=== PATIENT | male | born 1985 | race Caucasian/White ===

== ENCOUNTER 2018-06-28 23:51 | Emergency (ER) | payer OTHER, SELFPAY ==
[2018-06-29 00:04] VITALS: BMI 29.9
[2018-06-29 00:05] VITALS: BP 146/93; PULSE 68; RESP 18; TEMP 36.8; O2SAT 99
[2018-06-29 00:15] LABS: Bacteria Urine None Seen; WBC Urine None Seen (0-5/HPF)
--- NOTE | 2018-06-29 00:20 | ED_ITS ---
HPI - Back Pain/Injury General Chief Complaint: Back Pain/Injury Stated Complaint: pain right side sent by [facility] kidney stone Time Seen by Provider: 06/29/18 00:20 Source: patient Mode of arrival: ambulatory Limitations: no limitations History of Present Illness HPI Narrative: Otherwise healthy 33-year-old male here for evaluation of right- sided flank pain radiating around to his abdomen. Patient states that it was a fairly sudden onset[place]. He states he has never had a kidney stone in the past. Has not noticed any blood in his urine. Has not had any fevers. [place] what was reported to be Toradol. I do not have record of this. He states that he was also given some nausea medication but did not take it. By the time he arrived here in the emergency department he states that his symptoms have vastly improved. Related Data Previous Rx's Medication Instructions Recorded hydrocodone-acetaminophen [[place]] 1 tab PO Q4-6H PRN #10 tab 06/29/18 Review of Systems Constitutional Denies fever(s) and Denies headache(s) ENT Ears, Nose, Mouth, and Throat: Denies headache(s) Cardiovascular Denies chest pain and Denies dyspnea Respiratory Denies dyspnea Gastrointestinal Gastrointestinal: Reports abdominal pain, Denies change in stool character, Denies diarrhea, Reports nausea and Denies vomiting Genitourinary Reports flank pain, Denies urinary frequency, Denies urinary hesitancy and Denies urinary urgency Musculoskeletal Denies myalgias and Denies arthralgias Integumentary/Breasts Denies rash Neurologic Denies behavioral changes and Denies headache(s) Psychiatric Denies behavioral changes Hematologic/Lymphatic Denies easy bleeding and Denies easy bruising Allergic/Immunologic Denies urticaria [facility] Medical History Healthy adult (Acute) Social History Smoking Status: Never smoker Social History Smoking Status: Never smoker Exam Initial Vital Signs Initial Vital Signs: Vital Signs Temperature 98.2 F 06/29/18 00:05 Pulse Rate 68 06/29/18 00:05 Respiratory Rate 18 06/29/18 00:05 Blood Pressure 146/93 H 06/29/18 00:05 Pulse Oximetry 99 06/29/18 00:05 Const General: cooperative, healthy appearing, comfortable, well developed, well groomed and No acute distress Orientation: alert, awake and oriented x3 HENMT Head: normal to inspection and normocephalic Resp Effort & Inspection: normal respiratory effort Auscultation: clear to auscultation bilaterally Cardio Rate: regular rate Rhythm: regular rhythm GI Inspection: non-distended Palpation: soft and No tender Back/Spine/Pelvis Back: No CVA tenderness Skin Lesions: no lesions Rashes: no rashes Neuro General: alert, awake and oriented x3 Extrem General: normal to inspection and capillary refill normal Psych Appearance: grossly normal and well kempt Course Orders Ordered: ED Orders 06/29/18 00:14 Urine Microscopic Stat 06/29/18 00:30 CT kidney ureter bladder (KUB) Stat 06/29/18 01:13 Complete Blood Count AUTO DIFF Stat Comprehensive Metabolic Panel Stat Lipase Stat Discontinued Medications Hydrocodone Bitart/Acetaminophen (Vicodin Prepack) 1 bottle MISC SEEINSTR ONE Stop: 06/29/18 02:13 Last Admin: 06/29/18 02:10 Dose: 1 bottle Ondansetron HCl (Zofran Odt Prepack) 1 bottle MISC SEEINSTR ONE Stop: 06/29/18 02:13 Last Admin: 06/29/18 02:10 Dose: 1 bottle Vital Signs - 8 hr 06/29/18 00:05 06/29/18 02:15 Temperature 98.2 F Pulse Rate 68 68 Respiratory Rate 18 15 Blood Pressure 133/93 H Blood Pressure [Left Arm] 146/93 H Pulse Oximetry 99 95 MDM - Back Pain/Injury Lab Data Attestation: I reviewed the patient's lab results. Result diagrams: 06/29/18 01:13 06/29/18 01:13 Lab Results 06/29/18 06/29/18 06/29/18 Range/Units 00:14 01:13 01:13 WBC 8.7 (4.5-11.0) X10^3/uL RBC 4.62 (4.5-5.9) X10^6/uL Hgb 15.5 (13.5-17.5) g/dL Hct 43.8 (41-53) % MCV 94.6 (80-100) fL MCH 33.4 (26-34) PG MCHC 35.3 (30-36) % RDW 12.7 (11.6-14.8) % Plt Count 280 (150-400) X10^3/uL Neut % (Auto) 78.3 H (50-75) % Lymph % (Auto) 14.4 L (25-40) % [place] % (Auto) 6.5 (3-14) % Eos % (Auto) 0.3 L (2-4) % Baso % (Auto) 0.5 (0-2) % Neut # (Auto) 6800 (5124-0024) /uL Lymph # (Auto) 1200 (2001-4891) /uL [place] # (Auto) 600 (0-900) /uL Eos # (Auto) 0 (0-450) /uL Baso # (Auto) 0 (0-100) /uL Sodium 138 (137-145) mmol/L Potassium 3.9 (3.4-5.1) mmol/L Chloride 100 (98-107) mmol/L Carbon Dioxide 27 (22-32) mmol/L BUN 14 (9-20) mg/dL Creatinine 1.00 (0.66-1.25) mg/dL Estimated GFR > 60.0 (>60) mL/min BUN/Creatinine Ratio 14.0 (6-22) Glucose 102 H (70-100) mg/dL Calcium 9.3 (8.4-10.2) mg/dL Total Bilirubin 1.3 (0.2-1.3) mg/dL AST 24 (17-59) IU/L ALT 32 (21-72) IU/L Alkaline Phosphatase 83 (38-126) U/L Total Protein 7.8 (6.3-8.2) g/dL Albumin 4.7 (3.5-5.0) g/dL Globulin 3.1 (1.7-4.1) g/dL Albumin/Globulin Ratio 1.5 (1.0-2.8) Lipase 104 (23-300) U/L Urine RBC 30-100/hpf H (0-5/HPF) Urine WBC None seen (0-5/HPF) Urine Bacteria None seen (None) Ur Culture Indicated? Cult not indicated Urine Dip Bedside Urine Glucose Negative Bedside Urine Bilirubin - Negative Bedside Urine Ketone + 15 Urine Specific [place] 1.015 Bedside Urine Occult Blood +++ Bedside Urine pH 6.0 Bedside Urine Protein - Negative Bedside Urine Urobilinogen - Negative Bedside Urine Nitrite - Negative Bedside Urine Leukocytes - Negative Esterase Imaging Data CT scan - abdomen: Radiologist's impression: 2 mm stone right distal ureter. Produces right mild hydronephrosis. MDM Narrative Medical decision making narrative: Patient reports a vast improvement of his symptoms by the time he arrived here in the ER. Did not receive any medications here in the emergency department. He has never had a kidney stone in the past so CT scan was ordered to confirm the diagnosis which did show a 2 mm right- sided stone. No signs of an infection. Creatinine is unremarkable. Sent home with pain medication and nausea medication. Patient was given return precautions and follow-up instructions. He expressed understanding and agreement with plan. Discharge Plan Departure Patient Disposition: Home Clinical Impression: Renal colic Discharge Date/Time: 06/29/18 02:15 Interventions: ED Discharge Assessment Last Done: 06/29/18 02:15 Instructions: DI for Kidney Stones Activity Restrictions/Additional Instructions: Be sure to increase your fluid intake. Return to the emergency department for any new symptoms to include fevers, inability to urinate, worsening pain, or any other concerning symptoms. Prescriptions: New hydrocodone-acetaminophen [[place]] 5-325 mg tablet 1 tab PO Q4-6H PRN (Reason: pain) Qty: 10 RF: 0
--- NOTE | 2018-06-29 00:30 | DI.CT.S_ITS ---
PROCEDURE: CT KIDNEY URETER BLADDER (KUB) INDICATIONS: Right-sided flank pain concern for stone TECHNIQUE: Noncontrast 5 mm thick sections acquired from the diaphragms to the symphysis. 5 mm thick coronal and sagittal reformats were then performed. For radiation dose reduction, the following was used: automated exposure control, adjustment of mA and/or kV according to patient size. COMPARISON: None. FINDINGS: Image quality: Excellent. Lung bases: There are small indistinct nodular opacities in the lung bases measuring approximately 2 mm on the right and 3 mm on the left which are nonspecific. Heart size is normal. Urinary system: There is a small 2 mm urinary stone within the distal right ureter with mild right hydroureteronephrosis. There is minimal perinephric stranding. There are 2 additional nonobstructing stones within each kidney, measuring up to approximately 2 mm. No left hydronephrosis. The urinary bladder is nondistended. No calcified bladder stones. Other solid organs: Noncontrast evaluation of the liver demonstrates no focal hepatic lesions. Gallbladder appears within normal limits without calcified gallstones. Pancreas is normal in contours. Spleen is normal in size. No adrenal nodules. Peritoneum and bowel: Unenhanced bowel loops demonstrate normal wall thickness and caliber. The appendix is normal in appearance. There is colonic diverticulosis without acute diverticulitis. No free fluid or air. Nodes and vessels: No retroperitoneal or mesenteric adenopathy by size criteria. Aorta and inferior vena cava are normal in caliber. Abdominal wall: No ventral hernias. Pelvis: No free pelvic fluid. No inguinal hernias or adenopathy. Bones: No suspicious bony lesions. No vertebral body compression fractures. IMPRESSION: 1. Small 2 mm distal right ureteral stone with associated mild right hydronephrosis. 2. Additional small nonobstructing bilateral renal stones. 3. No evidence of appendicitis. 4. Small nonspecific nodules in the lung bases. If patient is at low risk for malignancy, no further followup is warranted. 5. Colonic diverticulosis without acute diverticulitis. Dictated by: Sudhakar Fisher M.D. on 06/29/2018 at 8:00 Approved by: Sudhakar Fisher M.D. on 06/29/2018 at 8:06
[2018-06-29 00:45] LABS: RBC Urine 30-100/HPF (0-5/HPF)
[2018-06-29 00:46] LABS: Culture Indicated Urine Cult Not Indicated
[2018-06-29 01:21] LABS: Add Manual Diff / Slide Review NO; Basophils Absolute Auto 0 /uL (0-100); Basophils Percent Auto 0.5 % (0-2); Eosinophils Absolute Auto 0 /uL (0-450); Eosinophils Percent Auto 0.3 % (2-4); Hematocrit 43.8 % (41-53); Hemoglobin 15.5 g/dL (13.5-17.5); Lymphocytes Absolute Auto 1200 /uL (1100-4500); Lymphocytes Percent Auto 14.4 % (25-40); Mean Corpuscular HGB Conc 35.3 % (30-36); Mean Corpuscular Hemoglobin 33.4 PG (26-34); Mean Corpuscular Volume 94.6 fL (80-100); Monocytes Absolute Auto 600 /uL (0-900); Monocytes Percent Auto 6.5 % (3-14); Neutrophils Absolute Auto 6800 /uL (1500-7000); Neutrophils Percent Auto 78.3 % (50-75); Platelet Count 280 X10^3/uL (150-400); Red Blood Cell Count 4.62 X10^6/uL (4.5-5.9); Red Cell Distribution Width 12.7 % (11.6-14.8); White Blood Cell Count 8.7 X10^3/uL (4.5-11.0)
[2018-06-29 01:30] LABS: Alanine Aminotransferase 32 IU/L (21-72); Albumin 4.7 g/dL (3.5-5.0); Albumin Globulin Ratio 1.5 (1.0-2.8); Alkaline Phosphatase 83 U/L (38-126); Aspartate Aminotransferase 24 IU/L (17-59); Bilirubin Total 1.3 mg/dL (0.2-1.3); Blood Urea Nitrogen 14 mg/dL (9-20); Calcium 9.3 mg/dL (8.4-10.2); Carbon Dioxide 27 mmol/L (22-32); Chloride 100 mmol/L (98-107); Estimated Glomerular Filt Rate > 60.0 mL/min (>60); Globulin 3.1 g/dL (1.7-4.1); Glucose 102 mg/dL (70-100); HEMOLYSIS 15 (0-50); Lipase 104 U/L (23-300); Potassium 3.9 mmol/L (3.4-5.1); Sodium 138 mmol/L (137-145); Total Protein 7.8 g/dL (6.3-8.2)
[2018-06-29] MEDS: HYDROCODONE/ACET 5/325 PREPACK 1 BOTTLE MISC (02:10)
[2018-06-29] MEDS: ONDANSETRON 4 MG ODT PREPACK 1 BOTTLE MISC (02:10)
[2018-06-29 02:15] VITALS: BP 133/93; PULSE 68; RESP 15; O2SAT 95
== END 2018-06-29 02:15 | disposition home or self-care (01) ==
PROVIDERS: Emergency Provider Emergency Medicine
DX: N23 Unspecified renal colic (principal)
CPT/HCPCS: 74176; 80053; 81003; 81015; 83690; 85025; 99282; 99284